=== PATIENT | female | born 1980 | race American Indian/Alaskan Native ===

== ENCOUNTER 2016-12-11 00:16 | Emergency (ER) | payer BC ==
[2016-12-11 01:33] LABS: Basophils % (Auto) 0.5 % (0.0-1.8); Eosinophils % (Auto) 1.2 % (0.0-4.3); Hematocrit 35.8 % (30.3-42.9); Hemoglobin 12.2 gm/dl (10.1-14.3); Mean Corpuscular HGB Conc 34 % (30-34); Mean Corpuscular Hemoglobin 30 pg (28-32); Mean Corpuscular Volume 88 fl (79-97); Platelet Count 203 K/mm3 (140-440); Red Blood Count 4.09 M/mm3 (3.65-5.03); Red Cell Distribution Width 12.4 % (13.2-15.2)
[2016-12-11 01:57] LABS: Bacteria,Urine 1+ /HPF (Negative); Bilirubin,Urine NEG (Negative); Blood,Urine SM (Negative); Ketones,Urine NEG (Negative); Leukocyte Esterase,Urine NEG (Negative); Nitrite,Urine NEG (Negative); Protein,Urine <15 mg/dL mg/dL (Negative); Urobilinogen,Urine < 2.0 mg/dL (<2.0); WBC,Urine < 1.0 /HPF (0.0-6.0)
--- NOTE | 2016-12-11 03:15 | Ultrasound Report ---
FINAL REPORT EXAM: US OB TRANSVAGINAL HISTORY: VAG BLEEDING/PREG TECHNIQUE: Transvaginal imaging was obtained of the pelvis. FINDINGS: The uterus measures 16 cm x 6.8 cm x 10.3 cm. Within the uterus is a gestational sac containing an embryo corresponding to a 7 week 3 day IUP. The heart rate is 149 BPM. Abutting the gestational sac is a small subchorionic bleed measuring 3.5 cm x 1.3 cm x 1.4 cm. The myometrium of the uterus otherwise reveal several solid masses compatible with fibroids. The largest is in the mid uterus left midline measuring 4.5 cm x 3.2 cm x 2.7 cm. The other 1 is fundal measuring 2.6 cm x 2.7 cm x 2.3 cm. An additional fundal fibroid measures up to 3.4 cm in diameter. The maternal ovaries are appropriate size contour and configuration. The right ovary measures 4 centimeters x 1.4 centimeters x 2 centimeters. The left ovary measures 2 centimeters x 2.4 centimeters x 4.7 centimeters. In the left ovary is a 2 point 0 cm cyst compatible the corpus luteum cyst. IMPRESSION: Single viable intrauterine with an estimated gestational age of 7 weeks 3 days. Small subchorionic hemorrhage noted as described. At least 3 fibroids noted in the uterus.
--- NOTE | 2016-12-11 03:18 | Ultrasound Report ---
FINAL REPORT EXAM: US OB \T\lt; = 14 WEEKS FETUS HISTORY: VAG BLEEDING/PREG TECHNIQUE: Transabdominal imaging was obtained of pelvis. FINDINGS: The uterus measures 16 cm x 6.8 cm x 10.3 cm. Within the uterus is a gestational sac containing an embryo corresponding to a 7 week 3 day IUP. The crown-rump length is 12.2 millimeters. The heart rate is 149 BPM. Abutting the gestational sac is a small subchorionic hemorrhage measuring 3.5 cm x 1.3 cm x 1.4 cm. The myometrium is remarkable for at least 3 fibroids the largest left midline measuring up to 4.5 cm in maximum dimension. The right ovary is normal size contour and echotexture measuring 4 centimeters x 1.4 centimeter x 2.0 centimeter. The left ovary measures 2.0 cm x 2.4 cm x 4.7 cm. Within the left ovary is 2.0 cm corpus luteum cyst. Free fluid is not seen. IMPRESSION: Single viable IUP at 7 weeks 3 days. Small subchorionic hemorrhage noted. At least 3 fibroids noted in the uterus.
--- NOTE | 2016-12-11 04:52 | Emergency Department Report ---
ED Female HPI - General Chief complaint: Vaginal Bleeding Stated complaint: VAG BLEEDING; POSSIBLE Time Seen by Provider: 12/11/16 04:22 Source: patient Mode of arrival: Ambulatory Limitations: No Limitations - History of Present Illness Initial comments: This is a 36-year-old female who was previously unknown to this provider. She is 3, para 2, currently on control and does not know when her last menstrual period is. She reports that she has a follow-up appointment this Wednesday with an outpatient wellness rn. She presents to the ER today with a complaint of suprapubic crampy lower abdominal discomfort. She denies irritative and obstructive urinary symptoms. Patient found to be Rh+, urinalysis negative, transvaginal ultrasound demonstrated an intrauterine , with a small subchorionic bleed. MD Complaint: vaginal bleeding, pelvic pain -: Gradual Location: suprapubic Severity: mild Quality: cramping Consistency: intermittent Improves with: none Worsens with: none Are you Now?: Yes Associated Symptoms: vaginal bleeding, abdominal pain. denies: vaginal discharge, nausea/vomiting, fever/chills, headaches, loss of appetite, dysuria, hematuria - Related Data Sexually active: Yes Previous Rx's Medication Instructions Recorded Last Taken Type Cyclobenzaprine [Flexeril] 10 mg PO TID PRN #20 tablet 09/11/15 Unknown Rx Ibuprofen [Motrin] 800 mg PO Q8HR PRN #20 tablet 09/11/15 Unknown Rx Doxylamine Succinate/Vit B6 1 each PO QHS PRN #30 tablet. 12/11/16 Unknown Rx [[place] Brantley 10-10 mg Tablet] Vit Calc,Iron,Folic 1 each PO QDAY #30 tablet 12/11/16 Unknown Rx [ Vitamins] Allergies Allergy/AdvReac Type Severity Reaction Status Date / Time No Known Allergies Allergy Verified 09/11/15 00:47 ED Review of Systems ROS: Stated complaint: VAG BLEEDING; POSSIBLE Other details as noted in HPI Constitutional: denies: fever, malaise Eyes: denies: vision change ENT: denies: epistaxis Respiratory: denies: cough Cardiovascular: denies: chest pain Gastrointestinal: abdominal pain Genitourinary: abnormal menses. denies: urgency, dysuria Musculoskeletal: denies: back pain Skin: denies: rash, lesions Neurological: denies: weakness ED Past Medical Hx - Past Medical History Previous Medical History?: No - Surgical History Past Surgical History?: Yes Additional Surgical History: C SECTION - Social History Smoking Status: Never Smoker Substance Use Type: None - Medications Home Medications: Home Medications Medication Instructions Recorded Confirmed Last Taken Type Cyclobenzaprine [Flexeril] 10 mg PO TID PRN #20 tablet 09/11/15 Unknown Rx Ibuprofen [Motrin] 800 mg PO Q8HR PRN #20 tablet 09/11/15 Unknown Rx Doxylamine Succinate/Vit B6 1 each PO QHS PRN #30 tablet. 12/11/16 Unknown Rx [Diclegis Dr 10-10 mg Tablet] Vit Calc,Iron,Folic 1 each PO QDAY #30 tablet 12/11/16 Unknown Rx [ Vitamins] ED Physical Exam - General Limitations: No Limitations General appearance: alert, in no apparent distress - Head Head exam: Present: atraumatic, normocephalic - Eye Eye exam: Present: normal appearance, EOMI. Absent: nystagmus - ENT ENT exam: Present: normal exam, normal orophraynx, mucous membranes moist, normal external ear exam - Neck Neck exam: Present: normal inspection, full ROM. Absent: tenderness, meningismus - Respiratory Respiratory exam: Present: normal lung sounds bilaterally. Absent: respiratory distress, wheezes, rales, rhonchi, stridor, chest wall tenderness, accessory muscle use, decreased breath sounds, prolonged expiratory - Cardiovascular Cardiovascular Exam: Present: regular rate, normal rhythm, normal heart sounds. Absent: bradycardia, tachycardia, irregular rhythm, systolic murmur, diastolic murmur, rubs, gallop - GI/Abdominal GI/Abdominal exam: Present: soft, normal bowel sounds. Absent: distended, tenderness, guarding, rebound, rigid, pulsatile mass - External exam: Present: normal external exam Speculum exam: Present: normal speculum exam, vaginal bleeding Bi-manual exam: Present: normal bi-manual exam, other (escorted by nurse Riki Rey). Absent: cervical motion tendernes, adnexal tenderness, adnexal mass, uterine enlargement, uterine tenderness - Extremities Exam Extremities exam: Present: normal inspection, full ROM, normal capillary refill. Absent: tenderness, pedal edema, joint swelling, calf tenderness - Back Exam Back exam: Present: normal inspection, full ROM. Absent: tenderness, CVA tenderness (R), CVA tenderness (L), muscle spasm, paraspinal tenderness, vertebral tenderness - Neurological Exam Neurological exam: Present: alert, oriented X3, normal gait, other (Extraocular movements intact. Tongue midline. No facial droop. Facial sensation intact to light touch in the V1, V2, V3 distribution bilaterally. 5 and 5 strength in 4 extremities.. Sensation is intact to light touch in 4 extremities.). Absent : motor sensory deficit - Psychiatric Psychiatric exam: Present: normal affect, normal mood - Skin Skin exam: Present: warm, dry, intact, normal color. Absent: rash ED Course Vital Signs 12/11/16 00:58 Temperature 99.0 F Pulse Rate 84 Respiratory 18 Rate Blood Pressure 108/71 O2 Sat by Pulse 100 Oximetry ED Medical Decision Making - Lab Data Result diagrams: 12/11/16 01:12 Vital Signs 12/11/16 00:58 Temperature 99.0 F Pulse Rate 84 Respiratory 18 Rate Blood Pressure 108/71 O2 Sat by Pulse 100 Oximetry Lab Results 12/11/16 12/11/16 12/11/16 Range/Units 01:12 01:12 01:12 WBC 7.0 (4.5-11.0) K/mm3 RBC 4.09 (3.65-5.03) M/mm3 Hgb 12.2 (10.1-14.3) gm/dl Hct 35.8 (30.3-42.9) % MCV 88 (79-97) fl MCH 30 (28-32) pg MCHC 34 (30-34) % RDW 12.4 L (13.2-15.2) % Plt Count 203 (140-440) K/mm3 Lymph % (Auto) 37.3 H (13.4-35.0) % [place] % (Auto) 11.3 H (0.0-7.3) % Eos % (Auto) 1.2 (0.0-4.3) % Baso % (Auto) 0.5 (0.0-1.8) % Lymph # 2.6 (1.2-5.4) K/mm3 [place] # 0.8 (0.0-0.8) K/mm3 Eos # 0.1 (0.0-0.4) K/mm3 Baso # 0.0 (0.0-0.1) K/mm3 Seg Neutrophils % 49.7 (40.0-70.0) % Seg Neutrophils # 3.5 (1.8-7.7) K/mm3 HCG, Quant 79771 H (0-4) mIU/mL Urine Color (Yellow) Urine Turbidity (Clear) Urine pH (5.0-7.0) Ur Specific [place] (1.003-1.030) Urine Protein (Negative) mg/dL Urine Glucose (UA) (Negative) mg/dL Urine Ketones (Negative) mg/dL Urine Blood (Negative) Urine Nitrite (Negative) Urine Bilirubin (Negative) Urine Urobilinogen (<2.0) mg/dL Ur Leukocyte Esterase (Negative) Urine WBC (Auto) (0.0-6.0) /HPF Urine RBC (Auto) (0.0-6.0) /HPF U Epithel Cells (Auto) (0-13.0) /HPF Urine Bacteria (Auto) (Negative) /HPF Blood Type B POSITIVE Antibody Screen TNR KAREL Antibody Screen Negative 12/11/16 Range/Units 01:22 WBC (4.5-11.0) K/mm3 RBC (3.65-5.03) M/mm3 Hgb (10.1-14.3) gm/dl Hct (30.3-42.9) % MCV (79-97) fl MCH (28-32) pg MCHC (30-34) % RDW (13.2-15.2) % Plt Count (140-440) K/mm3 Lymph % (Auto) (13.4-35.0) % [place] % (Auto) (0.0-7.3) % Eos % (Auto) (0.0-4.3) % Baso % (Auto) (0.0-1.8) % Lymph # (1.2-5.4) K/mm3 [place] # (0.0-0.8) K/mm3 Eos # (0.0-0.4) K/mm3 Baso # (0.0-0.1) K/mm3 Seg Neutrophils % (40.0-70.0) % Seg Neutrophils # (1.8-7.7) K/mm3 HCG, Quant (0-4) mIU/mL Urine Color Straw (Yellow) Urine Turbidity Clear (Clear) Urine pH 6.0 (5.0-7.0) Ur Specific [place] 1.004 (1.003-1.030) Urine Protein <15 mg/dl (Negative) mg/dL Urine Glucose (UA) Neg (Negative) mg/dL Urine Ketones Neg (Negative) mg/dL Urine Blood Sm (Negative) Urine Nitrite Neg (Negative) Urine Bilirubin Neg (Negative) Urine Urobilinogen < 2.0 (<2.0) mg/dL Ur Leukocyte Esterase Neg (Negative) Urine WBC (Auto) < 1.0 (0.0-6.0) /HPF Urine RBC (Auto) 1.0 (0.0-6.0) /HPF U Epithel Cells (Auto) 3.0 (0-13.0) /HPF Urine Bacteria (Auto) 1+ (Negative) /HPF Blood Type Antibody Screen KAREL Antibody Screen - Radiology Data Radiology results: report reviewed, image reviewed Obstetrics ultrasound demonstrates IUP, small subchorionic hemorrhage, fibroids - Medical Decision Making Differential diagnosis: Miscarriage, threatened miscarriage Assessment and plan: 36-year-old female, advanced paternal age, has an intrauterine , multiple fibroids, small subchorionic hemorrhage, Rh+, no right lower quadrant tenderness, rebound or guarding, afebrile without leukocytosis with reassuring vital signs. History physical and presentation suggestive of threatened miscarriage. Extensive discussion had with patient regarding expectations and management. Patient understands that she is advanced maternal age. Patient following up with gynecology on Wednesday. Declines pain medication at this time, patient will be discharged, return precautions were reviewed. Critical care attestation.: If time is entered above; I have spent that time in minutes in the direct care of this critically ill patient, excluding procedure time. ED Disposition Clinical Impression: Threatened Disposition: DC-01 TO HOME OR SELFCARE Is pt being admited?: No Does the pt Need Aspirin: No Condition: Stable Instructions: Threatened Miscarriage (ED) Additional Instructions: Take the medications as directed. Follow up with the wellness rn as soon as possible to start care. Please note that with an age of over 35, and fibroids in the uterus, this would be considered a high risk . Rest and avoid heavy lifting, avoid strenuous physical activity, and avoid sexual activity. Cultures were sent today, was also be available next 3-5 days, have a primary care doctor contact the medical records department to obtain culture results. Return to the ER right away with new pain, worsening pain, migration of pain, fevers, chills, lethargy, irritability, projectile vomiting, change in mental status, bleeding more than 2 pads per hour, loss of consciousness, fever , severe lower abdominal pain, inability to tolerate liquid feeds. Referrals: YO CLAY MD [Primary Care Provider] - 3-5 Days [facility] [Provider Group] - 3-5 Days [facility] [Provider Group] - 3-5 Days [facility] [Provider Group] - 3-5 Days
[2016-12-11 05:21] VITALS: BP 107/69
== END 2016-12-11 05:30 | disposition home or self-care (01) ==
LOC: ED 00:16
DX: O20.0 Threatened abortion (principal); Z3A.00 Weeks of gestation of pregnancy not specified
CPT/HCPCS: 36415; 76801; 76817; 81001; 84702; 85025; 86850; 86900; 86901

== ENCOUNTER 2017-10-18 13:06 | Outpatient (CLI) | payer BC ==
--- NOTE | 2017-10-18 15:38 | Cat Scan Report ---
CT HEAD WITH AND WITHOUT CONTRAST: HISTORY: Headache. Serial contiguous axial images were obtained through the cranium, both before and after the administration of intravenous contrast material. The ventricles are normal in size and appearance. There is no mass effect or midline shift. No areas of abnormally increased or decreased attenuation are seen. No mass lesion is seen. No abnormal enhancement following IV contrast is detected. The mastoid air cells and visualized portions of the sinuses are normal. A chronic right medial orbital fracture is noted. The orbits are within normal limits otherwise. IMPRESSION: Cranial CT scan within normal limits. Chronic right medial orbital fracture.
== END 2017-10-18 13:07 | disposition home or self-care (01) ==
LOC: CT 13:06
PROVIDERS: ATTEND Internal Medicine
DX: S02.81XA Fracture of other specified skull and facial bones, right side, initial encounter for closed fracture (principal); X58.XXXA Exposure to other specified factors, initial encounter; Y93.89 Activity, other specified; Y92.89 Other specified places as the place of occurrence of the external cause; Y99.8 Other external cause status
CPT/HCPCS: 70470; Q9967

== ENCOUNTER 2018-11-08 11:29 | Outpatient (CLI) | payer BC ==
--- NOTE | 2018-11-09 10:46 | Mammography Report ---
DIGITAL SCREENING MAMMOGRAM WITH CAD, 11/08/2018 INDICATION: Routine screening mammography. TECHNIQUE: Digital bilateral 2D mammography was obtained in the craniocaudal and mediolateral obliq ue projections. This examination was interpreted with the benefit of Computer-Aided Detection analysi s. COMPARISON: 01/20/2016 FINDINGS: Breast Density: The breasts are heterogeneously dense, which may obscure small masses. There is no evidence of dominant mass, suspicious calcifications or architectural distortion in eithe r breast. IMPRESSION: No mammographic evidence of malignancy. Follow up recommendation: Routine yearly BI-RADS Category 1: Negative. A "normal" or negative report should not discourage follow up or biopsy of a clinically significant f inding. A written summary of these findings will be mailed to the patient. The patient will be entered into a mammography reporting system which will generate a reminder letter for the patient's next appointmen t at the appropriate interval. The [employer] recommends yearly mammograms starting at age 40 and continuing as l delio as a woman is in good health. Breast MRI is recommended for women with an approximate 20-25% or greater lifetime risk of breast cancer, including women with a strong family history of breast or ova jigar cancer or who have been treated for Hodgkin's disease. Signer Name: Kulwant Ruiz MD Signed: 11/09/2018 10:42 AM Workstation Name: [id number]
== END 2018-11-08 11:30 | disposition home or self-care (01) ==
LOC: MAMMO 11:29
PROVIDERS: ATTEND Internal Medicine
DX: Z12.31 Encounter for screening mammogram for malignant neoplasm of breast (principal)
CPT/HCPCS: 77067

== ENCOUNTER 2019-11-13 09:05 | Outpatient (CLI) | payer BC ==
--- NOTE | 2019-11-13 12:12 | Mammography Report ---
DIGITAL SCREENING MAMMOGRAM WITH CAD, 11/13/2019 INDICATION: Routine screening mammography. TECHNIQUE: Digital bilateral 2D mammography was obtained in the craniocaudal and mediolateral obliq ue projections. This examination was interpreted with the benefit of Computer-Aided Detection analysi s. COMPARISON: 01/20/2016, 11/08/2018 FINDINGS: Breast Density: The breasts are heterogeneously dense, which may obscure small masses. There is no evidence of dominant mass, suspicious calcifications or architectural distortion in eithe r breast. No interval change. IMPRESSION: No evidence of malignancy. Follow up recommendation: Routine yearly BI-RADS Category 1: Negative. A "normal" or negative report should not discourage follow up or biopsy of a clinically significant f inding. A written summary of these findings will be mailed to the patient. The patient will be entered into a mammography reporting system which will generate a reminder letter for the patient's next appointmen t at the appropriate interval. The [employer] recommends yearly mammograms starting at age 40 and continuing as l delio as a woman is in good health. Breast MRI is recommended for women with an approximate 20-25% or greater lifetime risk of breast cancer, including women with a strong family history of breast or ova jigar cancer or who have been treated for Hodgkin's disease. Signer Name: Katelynn Wood MD Signed: 11/13/2019 12:08 PM Workstation Name: [id number]
== END 2019-11-13 09:06 | disposition home or self-care (01) ==
LOC: MAMMO 09:05
PROVIDERS: ATTEND Internal Medicine
DX: Z12.31 Encounter for screening mammogram for malignant neoplasm of breast (principal)
CPT/HCPCS: 77067

== ENCOUNTER 2021-01-17 09:56 | Outpatient (CLI) | payer OTHER | END 2021-01-17 09:57 | disposition home or self-care (01) | LOC: MAMMO 09:56 | PROVIDERS: ATTEND Internal Medicine | DX: Z12.31 Encounter for screening mammogram for malignant neoplasm of breast (principal) | CPT/HCPCS: 77067 ==